=== PATIENT | female | born 1995 | race Two or more races ===

== ENCOUNTER 2022-06-21 18:45 | Outpatient (CLI) | payer OTHER ==
[2022-06-21] MEDS ORDERED: PRENATAL TABLE1 EAC3 PO (21:40)
== END 2022-06-22 12:29 | disposition home or self-care (01) ==
LOC: OBS/DEL 18:45
PROVIDERS: ATTEND Obstetrics & Gynecology
DX: O26.892 Other specified pregnancy related conditions, second trimester (principal); Z3A.26 26 weeks gestation of pregnancy; R10.2 Pelvic and perineal pain; M54.50 Low back pain, unspecified; R51.9 Headache, unspecified

== ENCOUNTER 2022-09-30 21:40 | Inpatient (IN) | payer OTHER ==
[~2022-09-30] VITALS: Ht 165.1 cm; Wt 78.0 kg
[~2022-09-30 21:40] MED LIST: PRENATAL TABLE1 EAC3 PO
[2022-09-30] MEDS ORDERED: PRENATAL TABLE1 EAC6 PO (23:01)
== END 2022-10-03 14:41 | disposition home or self-care (01) | DRG 788 ==
LOC: OB/GYN 21:40 → LDR 21:40 → O/R 10-01 20:31 → OB/GYN 10-01 22:12
PROVIDERS: ADMIT Obstetrics & Gynecology; ATTEND Obstetrics & Gynecology
PROC: 3E0P7VZ Introduction of Hormone into Female Reproductive, Via Natural or Artificial Opening (ICD-10-PCS; 2022-09-30)
PROC: 4A1HXCZ Monitoring of Products of Conception, Cardiac Rate, External Approach (ICD-10-PCS; 2022-09-30)
PROC: 3E033VJ Introduction of Other Hormone into Peripheral Vein, Percutaneous Approach (ICD-10-PCS; 2022-10-01)
PROC: 10D00Z1 Extraction of Products of Conception, Low, Open Approach (ICD-10-PCS; principal; 2022-10-01 22:00)
DX: O61.0 Failed medical induction of labor (principal); O36.8330 Maternal care for abnormalities of the fetal heart rate or rhythm, third trimester, not applicable or unspecified; O69.0XX0 Labor and delivery complicated by prolapse of cord, not applicable or unspecified; Z3A.40 40 weeks gestation of pregnancy; Z37.0 Single live birth; Z20.822 Contact with and (suspected) exposure to COVID-19